=== PATIENT | female | born 1945 | race African-American/Black ===

== ENCOUNTER 2019-05-02 21:44 | Inpatient (IN) | payer MEDICARE, OTHER ==
[~2019-05-02] VITALS: Ht 162.6 cm; Wt 82.4 kg
[2019-05-02] MEDS ORDERED: LABE200T6 PO (21:58)
[2019-05-02] MEDS ORDERED: HYDR200T4 PO (21:58)
[2019-05-02] MEDS ORDERED: ACET-3207 PO (21:58)
[2019-05-02] MEDS ORDERED: LEVO50 PO (21:58)
[2019-05-02] MEDS ORDERED: METF-960 PO (21:58)
[2019-05-02] MEDS ORDERED: OXYB5 PO (21:58)
[2019-05-02] MEDS ORDERED: ASPI-1484 PO (21:58)
[2019-05-02 22:05] LABS: BASOPHILS % (AUTO) 0.4 % (0.0-2.0); EOSINOPHILS % (AUTO) 6.7 % (1.0-6.0); HEMOGLOBIN 10.3 g/dL (12.0-16.0); LYMPHOCYTES # (AUTO) 1.3 K/uL (1.0-4.8); LYMPHOCYTES % (AUTO) 32.4 % (22.0-44.0); MEAN CORPUSCULAR HEMOGLOBIN 32.6 pg (26.0-34.0); MEAN CORPUSCULAR HGB CONC 33.2 G/dL (31.0-37.0); MEAN CORPUSCULAR VOLUME 98 fL (80-100); MONOCYTES # (AUTO) 0.3 K/uL (0.1-1.0); NEUTROPHILS # (AUTO) 2.1 K/uL (1.8-7.7); NEUTROPHILS % (AUTO) 52.5 % (40.0-70.0); PLATELET COUNT (AUTO) 229 K/uL (150-450); RED BLOOD CELL COUNT(AUTO) 3.16 MIL/uL (4.00-5.20); RED CELL DISTRIBUTION WIDTH 14.8 % (11.5-14.5)
[2019-05-02 22:21] LABS: PROTHROMBIN TIME 10.5 SEC (9.4-11.6)
[2019-05-02 22:30] LABS: CALCIUM, TOTAL 8.9 mg/dL (8.8-10.5); CREATININE 1.36 mg/dL (0.60-1.30)
[2019-05-02 22:36] LABS: ALBUMIN 3.6 g/dL (3.4-5.0); BILIRUBIN,TOTAL 0.5 mg/dL (0.1-1.0); TOTAL PROTEIN, SERUM 8.7 g/dL (6.4-8.2)
[2019-05-02] MEDS ORDERED: SODIUM CHLORIDE 0.9% 100 ML ONE (22:38)
[2019-05-02] MEDS ORDERED: IOVERSOL 320 MG/ML 100 ML VIAL ONE (22:38)
[2019-05-02] MEDS ORDERED: ASPIRIN 325 MG TABLET PO ONE (23:00)
[2019-05-02] MEDS ORDERED: MAGNESIUM HYDROXIDE SUSPENSION 30 ML UDCUP PO PRN (23:30)
[2019-05-02] MEDS ORDERED: ONDANSETRON HCL 4 MG/2 ML VIAL IVP PRN (23:30)
[2019-05-02] MEDS ORDERED: ZOLPIDEM TARTRATE 5 MG TABLET PO PRN (23:30)
[2019-05-02] MEDS ORDERED: ACETAMINOPHEN 325 MG TABLET PO PRN (23:30)
[2019-05-02] MEDS ORDERED: BISACODYL 10 MG RECTAL RECTAL SUPPOSITORY PR PRN (23:30)
[2019-05-02] MEDS ORDERED: ASPIRIN 81 MG CHEWABLE TABLET PO ONE (23:30)
[2019-05-02] MEDS ORDERED: MORPHINE SULFATE 2 MG/ML SYRINGE IVP PRN (23:30)
[2019-05-03] MEDS: NiCARDipine HCL 25 MG in DEXTROSE 5%-WATER 240 ML IV PRN ×3 (00:07→12:30)
[2019-05-03 01:50] LABS: GLUCOSE,POINT OF CARE 92 MG/DL (70-110)
[2019-05-03 04:00] VITALS: BP 147/56
[2019-05-03 07:26] LABS: CHOL/HDL RATIO 4.4 (3.9-5.7); THYROID STIMULATING HORMONE 2.51 uIU/mL (0.36-3.74)
[2019-05-03 08:00] VITALS: BP 161/72
[2019-05-03] MEDS: PANTOPRAZOLE SODIUM 40 MG DR TABLET PO SCH (08:03)
[2019-05-03] MEDS: DOCUSATE SODIUM 100 MG CAPSULE PO SCH ×2 (08:03→20:18)
[2019-05-03 12:00] VITALS: BP 163/82
[2019-05-03 16:00] VITALS: BP 176/75
[2019-05-03] MEDS: MetFORMIN HCL 500 MG TABLET PO SCH (16:44)
[2019-05-03] MEDS: HydrALAZINE HCL 20 MG/ML VIAL IVP PRN (16:44)
[2019-05-03] MEDS: LABETALOL HCL 200 MG TABLET PO SCH (18:56)
[2019-05-03 20:07] VITALS: BP 141/50
[2019-05-03] MEDS: OXYBUTYNIN CHLORIDE 5 MG TABLET PO SCH (20:17)
[2019-05-03] MEDS: HYDROCODONE/ACETAMINOPHEN 5-325 MG TABLET PO PRN (20:18)
[2019-05-03] MEDS: ATORVASTATIN CALCIUM 20 MG TABLET PO SCH (20:19)
[2019-05-03 23:40] VITALS: BP 170/88
[2019-05-04] MEDS: HydrALAZINE HCL 20 MG/ML VIAL IVP PRN (00:50)
[2019-05-04 04:14] VITALS: BP 153/72
[2019-05-04] MEDS: LEVOTHYROXINE SODIUM 50 MCG TABLET PO SCH (06:48)
[2019-05-04 07:18] VITALS: BP 139/79
[2019-05-04] MEDS: DOCUSATE SODIUM 100 MG CAPSULE PO SCH ×2 (08:39→20:49)
[2019-05-04] MEDS: PANTOPRAZOLE SODIUM 40 MG DR TABLET PO SCH (08:39)
[2019-05-04] MEDS: HYDROXYCHLOROQUINE SULFATE 200 MG TABLET PO SCH (08:39)
[2019-05-04] MEDS: OXYBUTYNIN CHLORIDE 5 MG TABLET PO SCH ×2 (08:39→20:50)
[2019-05-04] MEDS: LABETALOL HCL 200 MG TABLET PO SCH ×2 (08:39→20:51)
[2019-05-04] MEDS: HYDROCODONE/ACETAMINOPHEN 5-325 MG TABLET PO PRN ×2 (09:31→20:52)
[2019-05-04] MEDS ORDERED: ATOR20TA65 PO (10:23)
[2019-05-04 11:15] VITALS: BP 153/73
[2019-05-04 15:42] VITALS: BP 140/70
[2019-05-04] MEDS ORDERED: MethylPREDNISolone 4 MG TABLET PO ONE (16:45)
[2019-05-04] MEDS: MetFORMIN HCL 500 MG TABLET PO SCH (18:29)
[2019-05-04 19:52] VITALS: BP 147/94
[2019-05-04] MEDS: ATORVASTATIN CALCIUM 20 MG TABLET PO SCH (20:50)
[2019-05-04] MEDS ORDERED: ACYCLOVIR 800 MG TABLET PO SCH (21:00)
[2019-05-04 23:51] VITALS: BP 161/82
[2019-05-05] MEDS: HydrALAZINE HCL 20 MG/ML VIAL IVP PRN (04:12)
[2019-05-05 04:26] VITALS: BP 174/87
[2019-05-05] MEDS: LEVOTHYROXINE SODIUM 50 MCG TABLET PO SCH (06:18)
[2019-05-05] MEDS: ACYCLOVIR 200 MG CAPSULE PO SCH ×2 (06:19→10:37)
[2019-05-05 07:15] VITALS: BP 171/91
[2019-05-05] MEDS: LABETALOL HCL 200 MG TABLET PO SCH (07:52)
[2019-05-05] MEDS: DOCUSATE SODIUM 100 MG CAPSULE PO SCH (07:52)
[2019-05-05] MEDS: HYDROXYCHLOROQUINE SULFATE 200 MG TABLET PO SCH (07:52)
[2019-05-05] MEDS: HYDROCODONE/ACETAMINOPHEN 5-325 MG TABLET PO PRN (07:52)
[2019-05-05] MEDS: PANTOPRAZOLE SODIUM 40 MG DR TABLET PO SCH (07:52)
[2019-05-05] MEDS: OXYBUTYNIN CHLORIDE 5 MG TABLET PO SCH (07:52)
[2019-05-05 09:39] VITALS: BP 139/76
[2019-05-05] MEDS ORDERED: ACYC800T PO (11:12)
[2019-05-05] MEDS ORDERED: ATOR80TA PO (11:13)
[2019-05-05] MEDS ORDERED: AMLO5TAB9 PO (11:14)
[2019-05-05] MEDS ORDERED: MEDR4 PO (11:21)
[2019-05-05] MEDS ORDERED: MethylPREDNISolone 4 MG TABLET PO ONE (16:45)
[2019-05-06] MEDS ORDERED: MethylPREDNISolone 4 MG TABLET PO ONE (16:45)
[2019-05-07] MEDS ORDERED: MethylPREDNISolone 4 MG TABLET PO ONE (16:45)
[2019-05-08] MEDS ORDERED: MethylPREDNISolone 4 MG TABLET PO ONE (16:45)
[2019-05-09] MEDS ORDERED: MethylPREDNISolone 4 MG TABLET PO ONE (16:45)
== END 2019-05-05 11:50 | disposition home or self-care (01) | DRG 74 ==
LOC: EMS 21:45 → ICU 05-03 00:26 → 5N 05-03 01:10
PROVIDERS: ADMIT Internal Medicine; ATTEND Internal Medicine
DX: G51.0 Bell's palsy (principal); I16.0 Hypertensive urgency; Z96.651 Presence of right artificial knee joint; Z90.710 Acquired absence of both cervix and uterus; I10 Essential (primary) hypertension; E03.9 Hypothyroidism, unspecified; E11.9 Type 2 diabetes mellitus without complications; E78.5 Hyperlipidemia, unspecified; Z88.8 Allergy status to other drugs, medicaments and biological substances; Z86.73 Personal history of transient ischemic attack (TIA), and cerebral infarction without residual deficits
CPT/HCPCS: 70496; 70544; 70551; 84443; 86850; 86900; 86901; 87081; 92507; 92610; 93005; 93880; 97116; 97162; 97166; 97530; 97535; 99291; J0360; J3490; J7050; J7060; J7509